=== PATIENT | male | born 1960 | race American Indian/Alaskan Native ===

== ENCOUNTER 2020-08-29 13:41 | Emergency (ER) | payer MEDICARE ==
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
[2020-08-29 18:05] LABS: BUN/Creatinine Ratio 14; Blood Urea Nitrogen 14 mg/dL (9-20); Calcium 9.3 mg/dL (8.4-10.2); Hemolysis Index 8
[2020-08-29 18:06] LABS: Basophils % (Auto) 0.3 % (0.0-1.8); Eosinophils % (Auto) 0.2 % (0.0-4.3); Hematocrit 42.4 % (35.5-45.6); Hemoglobin 14.2 gm/dl (11.8-15.2); Lymphocytes # (Auto) 1.6 K/mm3 (1.2-5.4); Lymphocytes % (Auto) 9.7 % (13.4-35.0); Mean Corpuscular HGB Conc 34 % (32-34); Mean Corpuscular Volume 94 fl (84-94); Monocytes # (Auto) 1.2 K/mm3 (0.0-0.8); Monocytes % (Auto) 7.2 % (0.0-7.3); Platelet Count 163 K/mm3 (140-440); Red Blood Count 4.52 M/mm3 (3.65-5.03); Red Cell Distribution Width 14.3 % (13.2-15.2)
[2020-08-29] MEDS ORDERED: LORazepam 2 MG/ML VIAL IV PRN ×3 (18:44)
[2020-08-29 20:08] LABS: Bilirubin,Urine NEG (Negative); Blood,Urine LG (Negative); Color,Urine Yellow (Yellow); Mucus,Urine FEW /HPF; Protein,Urine <15 mg/dL mg/dL (Negative); Urobilinogen,Urine < 2.0 mg/dL (<2.0)
[2020-08-29 20:13] LABS: Amphetamine Screen,Urine Negative; Benzodiazepines Screen,Urine Negative; Cannabinoid Screen,Urine Negative; Methadone Screen,Urine Negative; Opiate Screen,Urine Negative
[2020-08-29 20:44] LABS: Cocaine Screen,Urine Positive
[2020-08-29] MEDS ORDERED: ACETAMINOPHEN 500 MG TAB PO ONE (20:53)
[2020-08-29] MEDS: levoFLOXacin 500 MG TAB PO SCH (22:40)
[2020-08-30 07:49] VITALS: BP 121/75
--- NOTE | 2020-08-30 09:08 | Consultation ---
History of Present Illness - Reason for Consult Consult date: 08/30/20 Reason for consult: SI, polysubstance abuse - History of Present Psychiatric Illness Marshall Carlisle is a 59y/o male who presented to the ER with polysubstance abuse and suicidal thoughts. During my interview with the patient today, he is lying down awake. The patient states that when he came in he initially was suicidal. The patient now denies any thoughts of self harm or intent to harm others. He also denies hallucinations of any kind. He states "suicidal thoughts are gone." He says "I been off my meds for a couple of days, and would like to get back on them." The patient says "I need rehab for drug addiction. I was given papers for [facility]." The patient states "I am not willing to go to [facility]. They have bedbugs." The patient verbalizes feeling better than yesterday, but states "I wi ll go home and try to get into rehab. That is all I came here for and to get my meds." The patient says "using the drugs makes me feel worse." PAST PSYCHIATRIC HISTORY Diagnoses: schizophrenia Suicide attempts or Self-harm behavior: "Once" Prior psychiatric hospitalizations: Once Substance Abuse history: Cocaine Previous psychiatric medications tried: Risperidone, trazodone, seroquel Outpatient treatment: Denies PAST MEDICAL HISTORY: None reported Family Psychiatric History: None reported or documented SOCIAL HISTORY Marital Status: Single Living Arrangements: Lives alone Employment Status: Disabled Access to guns/weapons: None reported Education: high school History of Abuse: None reported Legal History: denies REVIEW OF SYSTEMS Constitutional: Negative for weight loss ENT: Negative for stridor Respiratory: Negative for cough or hemoptysis All other systems reviewed and are negative MENTAL STATUS EXAMINATION General Appearance and Behavior: Age appropriate, good hygiene, wearing appropriate clothes, good eye contact Cooperation: Participating/engaged, but Guarded Psychomotor Behavior: Psychomotor normal Mood: "better" Affect and affective range: congruent with stated mood Thought Process: Goal directed Thought Content: None Speech: Normal rate, volume and rhythm Suicidal Ideation: Denies Homicidal Ideation: Denies Hallucinations: Denies Delusions: None elicited Impulse Control: Limited Insight and Judgment: Limited insight and judgment Memory: Normal Attention: Limited Orientation: Alert, oriented Assessment and Plan (1) Cocaine Use Disorder (2) Substance Induced Mood Disorder (3) Noncompliance with other medical treatments and regimen (4) Schizophrenia by history Treatment Plan d/c 1013 MEDICATIONS: Risperidone 1mg po qhs Trazodone 50mg po qhs Risks, benefits and alternatives of medications discussed with the patient, questions answered and consent obtained from patient. PSYCHOTHERAPY: Supportive psychotherapy provided MEDICAL: Per primary team DELIRIUM PRECAUTIONS: Please re-orient patient frequently, keep lights on during the day, and minimize benzodiazepines and opiates as these medications could worsen patient's confusion. SOUND EFFECTS TECHNICIAN: DISPOSITION: Do not Recommend acute inpatient psychiatric hospitalization at this time. The patient understands that if suicidal thoughts are to return he is to seek immediate assistance including but not limited to the crisis hotline, 911/ER He is to abstain from all illicit drug use and alcohol He is to comply with treatment and follow up in 7 to 14 days upon discharge The assess is to further discuss the safety plan. FOLLOW-UP: Will follow Thank you for the consult. Please contact with any questions and/or concerns. Case staffed with Dr. Alarcon Medications and Allergies Allergies Allergy/AdvReac Type Severity Reaction Status Date / Time No Known Allergies Allergy Verified 08/29/20 21:04 Home Medications Medication Instructions Recorded Confirmed Last Taken Type lisinopriL [Zestril TAB] 10 mg PO QDAY 08/29/20 08/29/20 2 Days Ago History ~08/27/20 metFORMIN [Glucophage] 500 mg PO QDAY 08/29/20 08/29/20 2 Days Ago History ~08/27/20 risperiDONE [RisperDAL] 1 mg PO QHS 08/29/20 08/29/20 1 Day Ago History ~08/28/20 traZODone [Desyrel] 50 mg PO QHS 08/29/20 08/29/20 2 Days Ago History ~08/27/20 risperiDONE [RisperDAL] 1 mg PO QHS #30 tablet 08/30/20 Unknown Rx traZODone [Desyrel] 50 mg PO QHS #30 tab 08/30/20 Unknown Rx Active Meds: Active Medications Levofloxacin (Levofloxacin 500 Mg Tab) 500 mg PO QDAY [facility]; Protocol Last Admin: 08/29/20 22:40 Dose: 500 mg Documented by: Lorazepam (Lorazepam 2 Mg/Ml Vial) 2 mg IV Q1HR PRN PRN Reason: CIWA-Ar 8-15 Lorazepam (Lorazepam 2 Mg/Ml Vial) 4 mg IV Q1HR PRN PRN Reason: CIWA-Ar 16-25 Lorazepam (Lorazepam 2 Mg/Ml Vial) 4 mg IV Q15MIN PRN PRN Reason: CIWA-Ar >25 Mental Status Exam - Vital signs Last Vital Signs Temp 97.8 F 08/30/20 07:48 Pulse 63 08/30/20 07:48 Resp 20 08/30/20 07:48 BP 121/75 08/30/20 07:48 Pulse Ox 96 08/30/20 07:48 Results Result Diagrams: 08/29/20 17:29 08/29/20 17:29 Abnormal lab results 08/29/20 08/29/20 08/29/20 Range/Units 17:06 17:29 17:29 WBC (4.5-11.0) K/mm3 Lymph % (Auto) (13.4-35.0) % Knox # (Auto) (0.0-0.8) K/mm3 Seg Neutrophils % (40.0-70.0) % Seg Neutrophils # (1.8-7.7) K/mm3 Sodium (137-145) mmol/L Chloride (98-107) mmol/L Glucose (75-100) mg/dL POC Glucose (70-105) mg/dL Urine WBC (Auto) 173.0 H (0.0-6.0) /HPF Salicylates < 0.3 L (2.8-20.0) mg/dL Acetaminophen 5.0 L (10.0-30.0) ug/mL 08/29/20 08/29/20 08/30/20 Range/Units 17:29 17:29 07:27 WBC 16.3 H (4.5-11.0) K/mm3 Lymph % (Auto) 9.7 L (13.4-35.0) % [place] # (Auto) 1.2 H (0.0-0.8) K/mm3 Seg Neutrophils % 82.6 H (40.0-70.0) % Seg Neutrophils # 13.5 H (1.8-7.7) K/mm3 Sodium 134 L (137-145) mmol/L Chloride 97.5 L (98-107) mmol/L Glucose 132 H (75-100) mg/dL POC Glucose 118 H (70-105) mg/dL Urine WBC (Auto) (0.0-6.0) /HPF Salicylates (2.8-20.0) mg/dL Acetaminophen (10.0-30.0) ug/mL All other labs normal.
[2020-08-30] MEDS: levoFLOXacin 500 MG TAB PO SCH (10:12)
== END 2020-08-30 13:00 ==
LOC: ED 13:41
DX: F25.8 Other schizoaffective disorders (principal); N39.0 Urinary tract infection, site not specified; F15.10 Other stimulant abuse, uncomplicated
CPT/HCPCS: 36415; 80048; 80307; 80320; 81001; 82962; 85025; G0480